=== PATIENT | female | born 1995 | race Caucasian/White ===

== ENCOUNTER 2016-12-03 23:21 | Emergency (ER) | payer OTHER ==
[~2016-12-03] VITALS: Ht 160 cm; Wt 77.5 kg
[~2016-12-03 23:21] MED LIST: PHEN-537 PO
[2016-12-03 23:43] VITALS: Ht 160 cm; Wt 77.5 kg
[2016-12-04] MEDS ORDERED: HC30CR25 TOP (01:26)
[2016-12-04] MEDS ORDERED: FLUC150T17 PO (01:26)
[2016-12-04] MEDS ORDERED: NAPR-260 PO (01:36)
--- NOTE | 2016-12-04 01:36 | ERD ---
ER Documentation Chief Complaint Date/Time DATE: 12/04/16 TIME: 01:32 Chief Complaint rash/boil left axilla on and off x 1 year HPI Patient is a 21-year-old female who presents to the ED with vaginal itching and white discharge on and off for the last year. She denies other vaginal discharge. She also complains of bilateral axilla itchiness on and off for the last year. She states that shaves her underarms. She has tried changing deodorant with no success.. She denies drainage. She denies fever or chills. She states that she is currently sexually active in a monogamous relationship and does not use protection. No history of STDs. She denies dysuria or urgency. Denies vaginal bleeding. Denies abdominal pain, nausea, vomiting or diarrhea. She denies headache or dizziness. She has no other complaints. ROS All systems reviewed and are negative except as per history of present illness. Medications Home Meds Active Scripts Naproxen* (Naprosyn*) 500 Mg Tablet, 500 MG PO BID Y for PAIN AND/OR INFLAMMATION, #30 TAB Prov:ALFREDO SOUTH PA-C 12/04/16 Hydrocortisone* Topical (Hydrocortisone* Topical) 2.5%-28.3 Gm Cream..g., 1 APPLIC TOP BID, #1 TUB Prov:ALFREDO SOUTH PA-C 12/04/16 Fluconazole* (Diflucan*) 150 Mg Tablet, 150 MG PO ONCE, #1 TAB Prov:ALFREDO SOUTH PA-C 12/04/16 Phenazopyridine Hcl* (Pyridium*) 100 Mg Tab, 100 MG PO TID Y for URINARY PAIN, # 9 TAB Prov:PASTORA SEO PA-C 06/21/16 Allergies Allergies: Coded Allergies: No Known Allergy (Unverified , 12/03/16) PMhx/Soc Medical and Surgical Hx: pt denies Medical Hx, pt denies Surgical Hx History of Surgery: No Anesthesia Reaction: No Hx Neurological Disorder: No Hx Respiratory Disorders: No Hx Cardiac Disorders: No Hx Psychiatric Problems: No Hx Alcohol Use: Yes (socially) Hx Substance Use: Yes (weekly marijuana) Hx Tobacco Use: No Smoking Status: Never smoker FmHx Family History: No coronary disease, No diabetes, No other Physical Exam Vitals Vital Signs Date Time Temp Pulse Resp B/P Pulse Ox O2 Delivery O2 Flow Rate FiO2 12/03/16 23:43 98.5 73 20 125/82 99 Physical Exam GENERAL: Well-developed, well-nourished female. Appears in no acute distress. LUNG: Clear to auscultation bilaterally. No rhonchi, wheezing, rales or coarse breath sounds. HEART: Regular rate and rhythm. No murmurs, rubs or gallops. NEUROLOGIC: Alert and oriented. Moving all four extremities. 5/5 strength in all extremities. Normal speech. Steady gait. EXAM: Mild erythema on the labia majora with white cottage cheeselike discharge. No swelling, tenderness. No signs of STDs. SKIN: Normal color. Warm and dry. Excoriated under arms, dry with no open wounds or lesions. No warmth or erythema. Capillary refill < 2 seconds Procedures/MDM ER COURSE: I kept the patient and/or family informed of laboratory and diagnostic imaging results throughout the emergency room course. MEDICAL DECISION MAKING: This is a 21-year-old female who presents with vaginal itching, discharge and axilla itchiness on and off for the last year. Vital signs were reviewed. Patient is afebrile. Patient is not hypoxic. Patient is not toxic or ill- appearing. Patient likely has rash of unknown etiology on her bilateral axilla. Patient also likely has candidiasis. I have low suspicion for STDs. I have low suspicion for UTI. Low suspicion for necrotizing fasciitis, SJS, toxic epidermal necrolysis, Kawasaki, erythema multiforme, gangrene, scarlet fever, meningococcemia, sepsis, anaphylaxis, sepsis, deep space infection, or foreign body. Low suspicion for ovarian torsion, PID, tuboovarian abscess, ectopic , bowel obstruction, pyelonephritis, appendicitis, cervicitis, septic , molar , HELLP syndrome, preeclampsia, eclampsia, placenta previa, placenta abruptia. DISCHARGE: At this time, patient is stable for discharge and outpatient management with no new complaints during the ER course. Patient was sent home with hydrocortisone cream, Diflucan and Naprosyn. Patient will be discharged home with instructions to recheck for new or worsening symptoms such as fever, nausea, weakness, LOC and to follow up with primary care in the next 1-2 days. Patient was advised to return to the ER for any new or worsening symptoms. Plan was discussed and patient and/or family understands and agrees. Home instructions were given. Departure Diagnosis: Primary Impression: Candidiasis Additional Impression: Rash Condition: Stable Patient Instructions: Self-Care for Skin Rashes Referrals: [facility] YOU HAVE RECEIVED A MEDICAL SCREENING EXAM AND THE RESULTS INDICATE THAT YOU DO NOT HAVE A CONDITION THAT REQUIRES URGENT TREATMENT IN THE EMERGENCY DEPARTMENT. FURTHER EVALUATION AND TREATMENT OF YOUR CONDITION CAN WAIT UNTIL YOU ARE SEEN IN YOUR DOCTORS OFFICE WITHIN THE NEXT 1-2 DAYS. IT IS YOUR RESPONSIBILITY TO MAKE AN APPOINTMENT FOR FOLOW-UP CARE. IF YOU HAVE A PRIMARY DOCTOR --you should call your primary doctor and schedule an appointment IF YOU DO NOT HAVE A PRIMARY DOCTOR YOU CAN CALL OUR PHYSICIAN REFERRAL HOTLINE AT IF YOU CAN NOT AFFORD TO SEE A PHYSICIAN YOU CAN CHOSE FROM THE FOLLOWING [facility] [id number] [address] [facility] [address] [facility] [facility] [address] [facility] [address] [facility] [address] [facility]. [facility]. [address] [facility] Hours: 8:00 am - 5:00 pm Additional Instructions: Call your primary care doctor TOMORROW for an appointment during the next 1-2 days.See the doctor sooner or return here if your condition worsens before your appointment time. ALFREDO SOUTH PA-C Dec 04, 2016 01:35
== END 2016-12-04 01:59 | disposition home or self-care (01) ==
LOC: FTE 23:21
DX: B37.3 Candidiasis of vulva and vagina (principal)
CPT/HCPCS: 99283